=== PATIENT | male | born 1960 | race American Indian/Alaskan Native ===

== ENCOUNTER 2018-06-28 20:52 | Emergency (ER) | payer OTHER ==
[2018-06-28 21:03] VITALS: RESP 16; TEMP 98
[2018-06-28] MEDS ORDERED: Naloxone 0.4 mg/ml Inj (Adult) IVP STA (21:11)
[2018-06-28 21:14] LABS: HEMOGLOBIN 12.4 g/dL (14.0-18.0); MEAN CELL VOLUME 110.1 fl (80.0-105.0); MEAN CORPUSCULAR HEMOGLOBIN 35.7 pg (25.0-35.0); MEAN CORPUSCULAR HGB CONC 32.5 g/dl (31.0-37.0); MEAN PLATELET VOLUME 8.9 fl (7.0-11.0); RBC 3.47 10^6/uL (3.5-6.1); RED CELL DISTRIBUTION WIDTH 13.8 % (11.5-14.5); WHITE BLOOD COUNT 7.6 10^3/uL (4.5-11.0)
--- NOTE | 2018-06-28 21:17 | ED PDOC ---
Arrival/HPI - General Chief Complaint: Substance Abuse Time Seen by Provider: 06/28/18 20:56 Historian: Patient, EMS - History of Present Illness Narrative History of Present Illness (Text): 06/28/18 20:55 Ray Rivera is a 58 year old male, whose past medical history includes substance abuse and chronic shoulder pain, who presents to the ED brought in by EMS following an apparent heroin overdose. According to information obtained from EMS, patient was found unconscious on the ground. Patient was given Narcan in the field and subsequently became alert afterward. Patient denies any drug use but admits to drinking alcohol. Patient denies any past medical history other than a history of chronic shoulder pain, for which he takes Tramadol. Patient currently awake but drowsy. Patient denies any history of headache, chest pain, shortness of breath, neck pain, back pain, or any other complaints. Symptom Onset: Gradual Symptom Course: Unchanged Activities at Onset: Light Context: Street Past Medical History - Provider Review Nursing Documentation Reviewed: Yes - Infectious Disease Hx of Infectious Diseases: None - Psychiatric Hx Substance Use: (pt denies) - Anesthesia Hx Anesthesia: No Family/Social History - Physician Review Nursing Documentation Reviewed: Yes Family/Social History: Unknown Family HX Smoking Status: Smoker Currrent Status Unknown Hx Alcohol Use: Yes Frequency of alcohol use: Daily Hx Substance Use: (pt denies) Allergies/Home Meds Allergies/Adverse Reactions: Allergies No Known Allergies Allergy (Unverified 06/28/18 21:07) Review of Systems - Physician Review All systems were reviewed & negative as marked: Yes - Review of Systems Constitutional: Normal. absent: Fevers Eyes: Normal ENT: Normal Respiratory: Normal. absent: SOB, Cough Cardiovascular: Normal. absent: Chest Pain Gastrointestinal: Normal. absent: Abdominal Pain, Diarrhea, Nausea, Vomiting Genitourinary Male: Normal. absent: Dysuria, Frequency, Hematuria, Urinary Output Changes Musculoskeletal: Normal. absent: Back Pain, Neck Pain Skin: Normal. absent: Rash Neurological: Normal. absent: Headache, Dizziness Endocrine: Normal Hemo/Lymphatic: Normal Psychiatric: Other (+overdose) Physical Exam Vital Signs Reviewed: Yes Vital Signs Temp Pulse Resp BP Pulse Ox 06/28/18 21:01 98.0 F 82 16 145/101 H 98 Temperature: Afebrile Blood Pressure: Normal Pulse: Regular Respiratory Rate: Normal Appearance: Positive for: Well-Appearing, Comfortable Pain Distress: None Mental Status: Positive for: other (Drowsy but awake) - Systems Exam Head: Present: Atraumatic, Normocephalic Pupils: Present: Other (Small but reactive bilaterally) Extroacular Muscles: Present: EOMI Conjunctiva: Present: Normal Ears: Present: Normal, NORMAL TM, Normal Canal. No: Erythema, TM Bulging, Fluid, TM Perf Mouth: Present: Moist Mucous Membranes Pharnyx: Present: Normal. No: ERYTHEMA, EXUDATE, TONSILS ENLARGED, Peritonsilar Swelling, Uvular Deviation, Muffled/Hoarse Voice, Strider, Soft Palate/Uvular Edema Nose (External): Present: Atraumatic Nose (Internal): Present: Normal Inspection Neck: Present: Normal Range of Motion. No: Meningeal Signs, MIDLINE TENDERNESS, Paraspinal Tenderness Respiratory/Chest: Present: Clear to Auscultation, Good Air Exchange. No: Respiratory Distress, Accessory Muscle Use Cardiovascular: Present: Regular Rate and Rhythm, Normal S1, S2. No: Murmurs Abdomen: No: Tenderness, Distention, Peritoneal Signs Back: Present: Normal Inspection Upper Extremity: Present: Normal Inspection. No: Cyanosis, Edema Lower Extremity: Present: Normal Inspection. No: Edema Neurological: Present: GCS=15, CN II-XII Intact, Speech Normal Skin: Present: Warm, Dry, Normal Color. No: Rashes Medical Decision Making ED Course and Treatment: 06/28/18 20:55 Impression: 58 year old male brought in s/o heroin overdose. Plan: -- CT Head w/o contrast -- EKG -- Chest X-ray -- Labs, cardiac enzymes -- Urine drug screen -- Narcan -- Reassess and disposition Prior Visits: Notes and results from previous visits were reviewed. Progress Notes: Reviewed EKG, NSR at 82 bpm. Non-specific T wave changes. 06/28/18 22:35 Chest X-ray reviewed, shows no acute processes. CT Head: BRAIN: No acute intraparenchymal hemorrhage. No mass lesion. No CT evidence for acute territorial infarct. No midline shift or extra-axial collections. There is mild- moderate diffuse cerebral and cerebellar atrophy noted. This appears somewhat accelerated beyond that expected of a 58-year-old patient. The possibility of an underlying neurodegenerative disorder should be considered. A 7.0 mm focal zone of decreased attenuation is identified in the mid left periventricular white matter tracts thought compatible with an old lacunar infarction. VENTRICLES: No hydrocephalus. VASCULAR: Dense atherosclerotic vascular plaquing is seen within the carotid siphons bilaterally. ORBITS: The orbits are unremarkable. SINUSES AND MASTOIDS: The paranasal sinuses and mastoid air cells are clear. BONES: No fracture. SOFT TISSUES: Unremarkable. IMPRESSION: 1. No acute intracranial abnormality. 2. Mild-moderate diffuse cerebral and cerebellar atrophy. This appears slightly accelerated beyond what is typically seen in a patient of this age. The possibility of an underlying neurodegenerative disorder should be considered. 3. 7.0 mm old lacunar infarction in the left mid periventricular white matter tracts. Electronically signed on Jun 28, 2018 10:37:03 PM EDT by: Guevara Chacon M.D., M.B.A., Certified By [employer] Trained MRI and CT Specialist 06/28/18 22:38 Pt states he wants to leave and is refusing to stay for further evaluation/hospital admission. Pt has remained alert while in the and has been advised on the risks of leaving against medical advice, including . The patient is choosing to leave against medical advice. I have personally explained to the patient that choosing to do so may result in permanent bodily harm, disability, or . I have discussed at great length that without further evaluation and monitoring there may be unforeseen circumstances and/or deterioration causing permanent bodily harm or as a result of their choice. The patient is alert, oriented, and shows the mental capacity to make clear decisions regarding the patients health care at this time. The patient continues to wish to leave against medical advice. In light of the patients decision to leave against medical advice, patient is aware of the importance to following up as instructed. The patient has been advised that they should return to the emergency room immediately if they change their mind at any time, or if their condition begins to change or worsen in any way. - RAD Interpretation Radiology Orders: 06/28/18 21:07 HEAD W/O CONTRAST [CT] Stat 06/28/18 21:08 CHEST PORTABLE [RAD] Stat - EKG Interpretation Interpreted by ED Physician: Yes Type: 12 lead EKG - Medication Orders Current Medication Orders: Discontinued Medications Naloxone HCl (Narcan) 2 mg IVP STAT STA Stop: 06/28/18 21:12 - Scribe Statement The provider has reviewed the documentation as recorded by the Tanishaibjose enrique Whitehead Provider Scribe Attestation: All medical record entries made by the Scribe were at my direction and personally dictated by me. I have reviewed the chart and agree that the record accurately reflects my personal performance of the history, physical exam, medical decision making, and the department course for this patient. I have also personally directed, reviewed, and agree with the discharge instructions and disposition. Disposition/Present on Arrival - Present on Arrival Any Indicators Present on Arrival: No History of DVT/PE: No History of Uncontrolled Diabetes: No Urinary Catheter: No History of Decub. Ulcer: No History Surgical Site Infection Following: None - Disposition Have Diagnosis and Disposition been Completed?: Yes Diagnosis: Drug abuse Disposition: AGAINST MEDICAL ADVICE Disposition Time: 23:10 Condition: STABLE Referrals: FAMILY PROVIDER,NO [Primary Care Provider] - Follow up with primary Forms: [employer] (Frisian)
[2018-06-28 21:24] LABS: ALB/GLOB RATIO 1.4 (1.1-1.8); ALBUMIN 4.5 g/dL (3.0-4.8); ALT/SGPT 26 U/L (7-56); AST/SGOT 48 U/L (17-59); BLOOD UREA NITROGEN 11 mg/dL (7-21); CALCIUM 9.3 mg/dL (8.4-10.5); GFR NON-AFRICAN AMERICAN > 60
[2018-06-28 21:33] VITALS: BP 120/83; PULSE 85; O2SAT 100
[2018-06-28 21:33] LABS: INR 0.97; PROTHROMBIN TIME 10.8 SECONDS (9.4-12.5)
[2018-06-28 21:35] LABS: TROPONIN I 0.02 ng/mL
--- NOTE | 2018-06-29 08:22 | CT ---
Date of service: 06/28/2018 PROCEDURE: CT HEAD WITHOUT CONTRAST. HISTORY: syncope COMPARISON: None available. TECHNIQUE: Axial computed tomography images were obtained through the head/brain without intravenous contrast. Radiation dose: Total exam DLP = 1057.13 mGy-cm. This CT exam was performed using one or more of the following dose reduction techniques: Automated exposure control, adjustment of the mA and/or kV according to patient size, and/or use of iterative reconstruction technique. FINDINGS: HEMORRHAGE: No intracranial hemorrhage. BRAIN: No mass effect or edema. Mild atrophy and mild microvascular changes in the periventricular white matter VENTRICLES: Unremarkable. No hydrocephalus. CALVARIUM: Unremarkable. PARANASAL SINUSES: Unremarkable as visualized. No significant inflammatory changes. MASTOID AIR CELLS: Unremarkable as visualized. No inflammatory changes. OTHER FINDINGS: The report concurs with the preliminary [facility] report IMPRESSION: No acute findings
--- NOTE | 2018-06-29 09:11 | CARD ---
APPROVED REPORT Date of service: 06/28/2018 EKG Measurement Heart [id number] <Conclusion> Normal sinus rhythm Nonspecific T wave abnormality Prolonged QT Abnormal ECG
--- NOTE | 2018-06-29 10:29 | RAD ---
Date of service: 06/28/2018 HISTORY: syncope COMPARISON: No prior. TECHNIQUE: 1 view obtained. FINDINGS: LUNGS: No active pulmonary disease. PLEURA: No significant pleural effusion identified, no pneumothorax apparent. CARDIOVASCULAR: Aortic calcification Normal cardiac size. No pulmonary vascular congestion. OSSEOUS STRUCTURES: No significant abnormalities. VISUALIZED UPPER ABDOMEN: Normal. OTHER FINDINGS: None. IMPRESSION: No active disease.
== END 2018-06-28 23:10 | disposition left against medical advice (07) ==
LOC: ED 20:52
DX: F19.10 Other psychoactive substance abuse, uncomplicated (principal)
CPT/HCPCS: 70450; 71045; 80053; 80320; 82550; 83615; 84484; 85027; 85610; 85730; 93005; 96374; 99284; J2310